=== PATIENT | female | born 1990 | race African-American/Black ===

== ENCOUNTER 2019-03-02 06:34 | Day surgery (SDC) | payer OTHER ==
[2019-02-28 16:49] VITALS: BMI 41.9
[2019-03-02] MEDS ORDERED: MIDAZOLAM HCL 2 MG/2 ML SINGLE DOSE VIAL ONE ×2 (07:26→08:22)
[2019-03-02] MEDS ORDERED: PROPOFOL 20 ML ONE (07:26)
[2019-03-02] MEDS ORDERED: LIDOCAINE 1%-EPI 1:100,000 30 ML MDV IJ ONE (07:30)
--- NOTE | 2019-03-02 08:12 | HP ---
Admitting History and Physical - Admission Chief Complaint: left shoulder mass History of Present Illness: 29 y.o. female with slowly growing anterior left shoulder mass History Source: Patient - Past Medical History ...LMP: 02/12/19 - Smoking History Smoking history: Never smoked - Alcohol/Substance Use Hx Alcohol Use: No Home Medications - Allergies Allergies/Adverse Reactions: Allergies Allergy/AdvReac Type Severity Reaction Status Date / Time No Known Allergies Allergy Verified 02/28/19 16:40 - Home Medications Home Medications: Ambulatory Orders Ferrous Sulfate [Iron] 325 mg PO DAILY 02/28/19 Ibuprofen 400 mg PO ASDIR 02/28/19 Physical Examination Vital Signs: Vital Signs Temperature 99.0 F 03/02/19 07:30 Pulse Rate 90 03/02/19 07:30 Respiratory Rate 18 03/02/19 07:30 Blood Pressure 142/95 03/02/19 07:30 O2 Sat by Pulse Oximetry (%) 98 03/02/19 07:31 Constitutional: Yes: Well Nourished, Anxious Eyes: Yes: Conjunctiva Clear HENT: Yes: Normocephalic Neck: Yes: Supple Cardiovascular: Yes: Regular Rate and Rhythm Respiratory: Yes: CTA Bilaterally Gastrointestinal: Yes: Soft ...Rectal Exam: Yes: Deferred Extremities: Yes: Other (6 x 5 cm mass at anterior-medial aspect, soft, movable , with well defined borders) Neurological: Yes: WNL Problem List - Problems (1) Mass of skin of left shoulder Assessment/Plan: Excisional biopsy of left shoulder soft tissue mass Code(s): R22.32 - LOCALIZED SWELLING, MASS AND LUMP, LEFT UPPER LIMB
[2019-03-02] MEDS ORDERED: LIDOCAINE 1%/EPI 1:100000 (20 ML MULTI DOSE VIAL) IJ ONE (08:31)
[2019-03-02] MEDS ORDERED: DEXAMETHASONE SOD PHOSPHATE 4 MG/1 ML VIAL ONE (08:40)
[2019-03-02] MEDS ORDERED: KETOROLAC TROMETHAMINE 30 MG/1 ML VIAL ONE (08:40)
[2019-03-02] MEDS ORDERED: BENZOIN TINCTURE SWABSTICK TP ONE (08:54)
[2019-03-02 10:15] VITALS: BP 142/74; PULSE 88; TEMP 98.3
--- NOTE | 2019-03-02 10:22 | OP ---
DATE OF OPERATION: 03/02/2019 PROCEDURE: Excision of biopsy, left shoulder mass. PREOPERATIVE DIAGNOSIS: Left shoulder soft tissue mass. POSTOPERATIVE DIAGNOSIS: Left shoulder soft tissue mass. SURGEON: Rj Cooley MD ANESTHESIA: Local with sedation. FINDINGS AND PROCEDURE: This is a 29-year-old female who presents with a slowly growing mass of the anterior left shoulder, which is about 6 x 5 cm in size. On physical exam, patient has a moveable, well-defined mass of the left anterior shoulder extending toward the supraclavicular area, so the patient desired removal of the mass, and consent was obtained after discussion of the risks, benefits, and alternatives to the procedure. Patient was brought to the operating room and placed in supine position. Intravenous sedation was given by anesthesia team. The operative site was prepped and draped in the usual sterile fashion. Using lidocaine 1% with epinephrine, local anesthesia was administered to the proposed incision site. A 4-cm transverse incision over the mass using scalpel blade No. 15 was done with dissection carried down to the subcutaneous tissue. Further dissection using combined Bovie cautery and digital blunt dissection was made until the lobulated mass was completely excised down to its attachment to the periosteum of the distal tip of the clavicle. After this was done, the wound was closed with an interrupted Polysorb 3-0 suture for the dermis and continuous Biosyn 4-0 suture for the subcuticular layer. The wound closure was reinforced with Steri-Strips and covered with sterile pressure dressing. Patient was transferred to ambulatory surgery unit in satisfactory condition. ESTIMATED BLOOD LOSS: About 1 mL. WOUND CLASS: Clean. Red FLORES/[id number] MTDKing
[2019-03-02] MEDS ORDERED: ONDANSETRON 4 MG/2 ML VIAL IVPUSH PRN (11:38)
[2019-03-02] MEDS ORDERED: oxyCODONE HCL 5 MG TABLET PO PRN (11:38)
[2019-03-02] MEDS ORDERED: LACTATED RINGERS SOLUTION 1,000 ML IV SCH (11:45)
--- NOTE | 2019-03-08 09:22 | PATH ---
Surgical Pathology Report Patient Name: JEET DILL Med. Rec. #: [id number] /Age/Gender: 1990 (Age: 29) / F Account: [id number] Location: [facility] SURGICAL Taken: 03/02/2019 Received: 03/02/2019 Reported: 03/08/2019 Physicians: Rj Cooley M.D. Specimen(s) Received SOFT TISSUE MASS LEFT SHOULDER Clinical History Left shoulder mass Final Diagnosis Shoulder, left, soft tissue, mass, excision: Mature adipose tissue, consistent with lipoma. Electronically Signed Maribeth Weston M.D. Gross Description Received in formalin, labeled "soft tissue mass left shoulder" is a irregular portion of adipose tissue measuring 6.5 x 4.5 x 2.0 cm and separate smaller portions of adipose tissue (2.0 x 1.5 x 1.5cm in aggregate). Serial sections reveal yellow homogeneous adipose tissue. Re[employer]ing [employer] sections are submitted in 3 cassettes. KATYA/03/05/2019 fani/03/05/2019
== END 2019-03-02 10:00 | disposition home or self-care (01) ==
LOC: JASU-SURG 06:34
PROVIDERS: ATTEND Surgery
PROC: 0JBF0ZZ Excision of Left Upper Arm Subcutaneous Tissue and Fascia, Open Approach (ICD-10-PCS; principal; 2019-03-02 08:00)
DX: D21.12 Benign neoplasm of connective and other soft tissue of left upper limb, including shoulder (principal); E66.9 Obesity, unspecified; R73.03 Prediabetes; D64.9 Anemia, unspecified
CPT/HCPCS: 84703; 88305-TC